=== PATIENT | female | born 1975 | race Caucasian/White ===

== ENCOUNTER 2017-01-09 21:55 | Emergency (ER) | payer MEDICAID ==
[~2017-01-09 21:55] MED LIST: ALTOPREV20 M1 PO; AMOXICILLIN 50500 MG PO; CELEXA20 M1 PO; CITALOPRAM40 MG PO; COMBIVENT RESPI1 SPR IH; FLOVENT HFA10.6 GM IH; LAMICTAL (BLUE)25 MG PO; LAMICTAL 100MG100 MG PO; LEVOTHYROXINE300 MCG PO; MACROBID 100 M100 MG PO; MASON NATURAL2000 IU PO; MICROGESTIN 1/21 TAB PO; NABUMETONE PO; NAPROSYN500 M1 PO; NEURONTIN300 M1 PO; NORCO 325 MG-51 TAB PO; OMEPRAZOLE D/R20 MG PO; ONDANSETRON HYDR4 M1 PO; OXYBUTYNIN CHLO10 MG PO; PANTOPRAZOLE SO40 MG PO; PEPCID 20MG TAB20 MG PO; PREDNISONE20 M1 PO; PREMARIN0.625 MG; PREMARIN0.625 MG PO; PROGESTERONE100 M1; SENEXON8.6 MG PO; SINGULAIR 110 MG/TAB PO; SINGULAIR4 MG PO; TESSALON PERLE100 M1 PO; TOPAMAX 100MG100 M1 PO; TOPAMAX100 MG PO; TREXIMET 500 MG1 TAB PO; VESICARE10 MG PO; VIBRAMYCIN100 MG PO; ZOFRAN ODT4 MG PO
[2017-01-10] MEDS ORDERED: TREXIMET PO (07:01)
== END 2017-01-09 22:41 | disposition home or self-care (01) ==
LOC: ED 21:55
DX: K04.7 Periapical abscess without sinus (principal)
CPT/HCPCS: J0696; J1885

== ENCOUNTER → 2017-07-11 | Outpatient (CLI) | payer MEDICAID ==
[2017-01-09 22:41] VITALS: BP 126/79
[~2017-07-11] MED LIST changes: +TREXIMET PO
== END ==
LOC: LAB 13:55
DX: E03.9 Hypothyroidism, unspecified (principal); E66.9 Obesity, unspecified

== ENCOUNTER 2017-09-11 21:34 | Emergency (ER) | payer MEDICAID ==
[~2017-09-11] VITALS: Ht 165.1 cm; Wt 135.5 kg
[2017-09-11] MEDS ORDERED: ZOFRAN ODT4 MG PO (23:42)
[2017-09-11 23:51] VITALS: BP 140/89
== END 2017-09-11 23:51 | disposition home or self-care (01) ==
LOC: ED 21:34
DX: A08.4 Viral intestinal infection, unspecified (principal); S93.401D Sprain of unspecified ligament of right ankle, subsequent encounter; X58.XXXD Exposure to other specified factors, subsequent encounter; F31.9 Bipolar disorder, unspecified; F41.9 Anxiety disorder, unspecified; E03.9 Hypothyroidism, unspecified; K21.9 Gastro-esophageal reflux disease without esophagitis; N39.3 Stress incontinence (female) (male); G62.9 Polyneuropathy, unspecified; Z87.891 Personal history of nicotine dependence; E66.9 Obesity, unspecified

== ENCOUNTER → 2017-09-13 | Outpatient (CLI) | payer MEDICAID ==
[2017-09-11 23:51] VITALS: BP 140/89
== END ==
LOC: RAD 11:27
DX: S93.401A Sprain of unspecified ligament of right ankle, initial encounter (principal); X58.XXXA Exposure to other specified factors, initial encounter

== ENCOUNTER 2017-12-11 18:36 | Emergency (ER) | payer MEDICAID ==
[~2017-12-11] VITALS: Wt 134.3 kg
[~2017-12-11 18:36] MED LIST changes: -LAMICTAL 100MG100 MG PO; +LAMICTAL200 M1 PO; -NEURONTIN300 M1 PO; +NEURONTIN800 M1 PO
[2017-12-11] MEDS ORDERED: HYDROXYZINE PAM25 M1 PO (18:48)
[2017-12-11] MEDS ORDERED: PROAIR HFA0.09 MG/AC IH (18:49)
[2017-12-11] MEDS ORDERED: OXYBUTYNIN CHLO10 MG PO (18:49)
[2017-12-11 19:37] LABS: HEMATOCRIT 39.3 % (37.0-47.0); HEMOGLOBIN 13.2 g/dL (12.5-16.0); MEAN CELL VOLUME 92 fl (78-100); MEAN CORPUSCULAR HEMOGLOBIN 31 pg (27-31); MEAN CORPUSCULAR HGB CONC 34 g/dL (33-37); MEAN PLATELET VOLUME 9.1 fl (7.4-10.4); PLATELET COUNT 280 K/mm3 (130-400); RED BLOOD COUNT 4.29 M/mm3 (4.10-5.30); RED CELL DISTRIBUTION WIDTH 12.3 % (11.5-14.5); WHITE BLOOD COUNT 8.5 K/mm3 (4.8-10.8)
[2017-12-11 19:47] LABS: BUN/CREATININE RATIO 13.4 (6.0-26.0); CALCIUM 8.7 mg/dL (8.4-10.2); POTASSIUM 3.9 mmol/L (3.6-5.0)
[2017-12-11 20:04] LABS: LYMPHOCYTE 27 % (20-51); MONOCYTE 10 % (3-10); NEUTROPHILS 53 % (42-75)
[2017-12-11 20:32] LABS: ERYTHROCYTE SEDIMENTATION RATE 24 mm/hr (0-20)
[2017-12-11] MEDS ORDERED: HCTZ 25MG25 MG PO ×2 (20:39)
[2017-12-11 20:42] VITALS: BP 154/87
== END 2017-12-11 20:42 | disposition home or self-care (01) ==
LOC: ED 18:36
PROVIDERS: Family Medicine
DX: R60.9 Edema, unspecified (principal); E03.9 Hypothyroidism, unspecified; F31.9 Bipolar disorder, unspecified; G62.9 Polyneuropathy, unspecified; K21.9 Gastro-esophageal reflux disease without esophagitis; M25.542 Pain in joints of left hand

== ENCOUNTER 2018-01-23 15:42 | Emergency (ER) | payer MEDICAID ==
[~2018-01-23] VITALS: Ht 165.1 cm; Wt 127.7 kg
[~2018-01-23 15:42] MED LIST changes: +HCTZ 25MG25 MG PO; +HYDROXYZINE PAM25 M1 PO; +PROAIR HFA0.09 MG/AC IH
[2018-01-23] MEDS ORDERED: LEVOTHYROXIN0.025 MG PO (15:55)
[2018-01-23] MEDS ORDERED: PREDNISONE20 M1 PO (17:38)
[2018-01-23] MEDS ORDERED: CLEOCIN HCL300 MG PO (17:38)
[2018-01-23] MEDS ORDERED: PEPCID 20MG TAB20 MG PO (17:42)
[2018-01-23 18:27] VITALS: BP 125/72
== END 2018-01-23 18:53 | disposition home or self-care (01) ==
LOC: ED 15:42
DX: L50.0 Allergic urticaria (principal); T37.0X5A Adverse effect of sulfonamides, initial encounter; Z88.2 Allergy status to sulfonamides; L30.9 Dermatitis, unspecified; F31.9 Bipolar disorder, unspecified; F41.9 Anxiety disorder, unspecified; J45.909 Unspecified asthma, uncomplicated; R32 Unspecified urinary incontinence
CPT/HCPCS: J1200; J2930; J3490; J7030

== ENCOUNTER 2018-02-21 19:35 | Emergency (ER) | payer MEDICAID ==
[~2018-02-21] VITALS: Ht 165.1 cm; Wt 130.4 kg
[~2018-02-21 19:35] MED LIST changes: +CLEOCIN HCL300 MG PO; +LEVOTHYROXIN0.025 MG PO
[2018-02-21] MEDS ORDERED: CLINDAMYCIN 300MG PO (21:01)
[2018-02-21 21:20] VITALS: BP 146/85
== END 2018-02-21 21:20 | disposition home or self-care (01) ==
LOC: ED 19:35
DX: L02.415 Cutaneous abscess of right lower limb (principal); L03.032 Cellulitis of left toe; Z88.2 Allergy status to sulfonamides; J45.909 Unspecified asthma, uncomplicated

== ENCOUNTER 2018-03-15 21:42 | Emergency (ER) | payer MEDICAID ==
[~2018-03-15 21:42] MED LIST changes: +CLINDAMYCIN 300MG PO
[2018-03-15 22:26] LABS: EOS # 0.3 (0.04-0.40); EOS % 3.4 % (1.0-5.0); HEMATOCRIT 44.2 % (37.0-47.0); HEMOGLOBIN 14.8 g/dL (12.5-16.0); LYMPH# 1.4 (1.50-4.00); MEAN CELL VOLUME 90 fl (78-100); MEAN CORPUSCULAR HEMOGLOBIN 30 pg (27-31); MEAN CORPUSCULAR HGB CONC 34 g/dL (33-37); MEAN PLATELET VOLUME 9.2 fl (7.4-10.4); MONO # 0.8 (0.20-0.80); NEU # 5.9 (1.40-6.50); PLATELET COUNT 283 K/mm3 (130-400); RED CELL DISTRIBUTION WIDTH 13.8 % (11.5-14.5); WHITE BLOOD COUNT 8.4 K/mm3 (4.8-10.8)
[2018-03-15 22:44] LABS: BUN/CREATININE RATIO 14.7 (6.0-26.0); CALCIUM 9.3 mg/dL (8.4-10.2); CARBON DIOXIDE 28 mmol/L (22-30); GLUCOSE 115 mg/dL (65-105); POTASSIUM 3.3 mmol/L (3.6-5.0); SODIUM 140 mmol/L (137-145)
[2018-03-15 22:53] LABS: ACETAMINOPHEN < 4 ug/mL (10-30); ALCOHOL IN-HOUSE < 10 mg/dL
[2018-03-16 04:20] VITALS: BP 100/57
== END 2018-03-16 04:20 ==
LOC: ED 21:42
PROVIDERS: Nurse Practitioner Primary Care
DX: R45.851 Suicidal ideations (principal); F41.9 Anxiety disorder, unspecified; F32.9 Major depressive disorder, single episode, unspecified; F17.200 Nicotine dependence, unspecified, uncomplicated

== ENCOUNTER 2018-03-22 03:07 | Emergency (ER) | payer MEDICAID ==
[~2018-03-22] VITALS: Ht 165.1 cm; Wt 127.2 kg
[2018-03-22] MEDS ORDERED: DESYREL 100MG100 MG PO (03:23)
[2018-03-22] MEDS ORDERED: SEROQUEL 2525 MG/TAB PO (03:24)
[2018-03-22] MEDS ORDERED: ABILIFY5 MG PO (03:24)
[2018-03-22] MEDS ORDERED: LOVASTATIN20 M1 PO (03:25)
[2018-03-22] MEDS ORDERED: RECLIPSEN 0.151 TAB PO (03:25)
[2018-03-22] MEDS ORDERED: VESICARE10 MG PO (03:30)
[2018-03-22 04:09] LABS: EOS # 0.5 (0.04-0.40); EOS % 6.7 % (1.0-5.0); HEMATOCRIT 39.8 % (37.0-47.0); HEMOGLOBIN 13.1 g/dL (12.5-16.0); LYMPH# 1.7 (1.50-4.00); MEAN CELL VOLUME 93 fl (78-100); MEAN CORPUSCULAR HEMOGLOBIN 31 pg (27-31); MEAN CORPUSCULAR HGB CONC 33 g/dL (33-37); MEAN PLATELET VOLUME 9.2 fl (7.4-10.4); MONO # 0.8 (0.20-0.80); NEU # 4.9 (1.40-6.50); PLATELET COUNT 253 K/mm3 (130-400); RED BLOOD COUNT 4.26 M/mm3 (4.10-5.30); RED CELL DISTRIBUTION WIDTH 13.9 % (11.5-14.5)
[2018-03-22 04:25] LABS: BUN/CREATININE RATIO 12.1 (6.0-26.0); CALCIUM 8.7 mg/dL (8.4-10.2); CARBON DIOXIDE 32 mmol/L (22-30); GLUCOSE 102 mg/dL (65-105); SODIUM 139 mmol/L (137-145)
[2018-03-22 04:30] LABS: ACETAMINOPHEN < 4 ug/mL (10-30)
[2018-03-22 04:31] LABS: URINE COLOR YELLOW
[2018-03-22 04:34] LABS: URINE APPEARANCE HAZY; URINE BILIRUBIN NEGATIVE (NEGATIVE); URINE BLOOD NEGATIVE (NEGATIVE); URINE GLUCOSE NEGATIVE (NEGATIVE); URINE KETONE NEGATIVE (NEGATIVE); URINE LEUKOCYTE ESTERASE TRACE (NEGATIVE); URINE NITRATE NEGATIVE (NEGATIVE); URINE PROTEIN(semi-quant) NEGATIVE (NEGATIVE); URINE UROBILINOGEN NORMAL (NORMAL)
[2018-03-22 04:35] LABS: URINE MUCUS PRESENT (NOT PRESENT)
[2018-03-22 04:37] LABS: ALCOHOL IN-HOUSE < 10 mg/dL
[2018-03-22 06:38] VITALS: BP 140/82
== END 2018-03-22 06:38 | disposition home or self-care (01) ==
LOC: ED 03:07
PROVIDERS: Nurse Practitioner Family
DX: F31.30 Bipolar disorder, current episode depressed, mild or moderate severity, unspecified (principal); F41.9 Anxiety disorder, unspecified; Z91.5 Personal history of self-harm; F17.210 Nicotine dependence, cigarettes, uncomplicated

== ENCOUNTER 2018-03-31 15:31 | Emergency (ER) | payer MEDICAID ==
[~2018-03-31] VITALS: Ht 165.1 cm; Wt 123.2 kg
[~2018-03-31 15:31] MED LIST changes: +ABILIFY5 MG PO; +DESYREL 100MG100 MG PO; +LOVASTATIN20 M1 PO; +RECLIPSEN 0.151 TAB PO; +SEROQUEL 2525 MG/TAB PO
[2018-03-31 17:08] LABS: EOS # 0.4 (0.04-0.40); EOS % 5.4 % (1.0-5.0); HEMATOCRIT 39.5 % (37.0-47.0); HEMOGLOBIN 13.4 g/dL (12.5-16.0); LYMPH# 1.4 (1.50-4.00); MEAN CELL VOLUME 92 fl (78-100); MEAN CORPUSCULAR HEMOGLOBIN 31 pg (27-31); MEAN CORPUSCULAR HGB CONC 34 g/dL (33-37); MEAN PLATELET VOLUME 9.5 fl (7.4-10.4); MONO # 0.8 (0.20-0.80); NEU # 4.7 (1.40-6.50); PLATELET COUNT 276 K/mm3 (130-400); RED BLOOD COUNT 4.31 M/mm3 (4.10-5.30); RED CELL DISTRIBUTION WIDTH 13.6 % (11.5-14.5); WHITE BLOOD COUNT 7.4 K/mm3 (4.8-10.8)
[2018-03-31 17:13] LABS: PH-URINE 5.5 (5.0 - 8.0); URINE APPEARANCE HAZY; URINE COLOR YELLOW; URINE GLUCOSE NEGATIVE (NEGATIVE); URINE KETONE 2+ (NEGATIVE); URINE PROTEIN(semi-quant) TRACE mg/dL (NEGATIVE)
[2018-03-31 17:14] LABS: ALBUMIN 3.9 g/dL (3.5-5.0); BUN/CREATININE RATIO 11.8 (6.0-26.0); CALCIUM 8.8 mg/dL (8.4-10.2); POTASSIUM 3.6 mmol/L (3.6-5.0); TOTAL BILIRUBIN 0.6 mg/dL (0.2-1.3); TOTAL PROTEIN 7.1 g/dL (6.3-8.2)
[2018-03-31 17:14] LABS: URINE BILIRUBIN NEGATIVE (NEGATIVE); URINE BLOOD NEGATIVE (NEGATIVE); URINE LEUKOCYTE ESTERASE 1+ (NEGATIVE); URINE MUCUS PRESENT (NOT PRESENT); URINE NITRATE NEGATIVE (NEGATIVE); URINE UROBILINOGEN NORMAL (NORMAL)
[2018-03-31] MEDS ORDERED: PYRIDIUM200 M2 PO (21:26)
[2018-03-31] MEDS ORDERED: CEPHALEXIN250 MG PO (21:26)
[2018-03-31 21:42] VITALS: BP 126/76
[2018-03-31] MEDS ORDERED: ZOFRAN ODT4 MG PO (21:43)
== END 2018-03-31 21:42 | disposition home or self-care (01) ==
LOC: ED 15:31
PROVIDERS: Internal Medicine; Physician Assistant
DX: K52.9 Noninfective gastroenteritis and colitis, unspecified (principal); N39.0 Urinary tract infection, site not specified; F17.210 Nicotine dependence, cigarettes, uncomplicated; Z79.899 Other long term (current) drug therapy; R32 Unspecified urinary incontinence
CPT/HCPCS: J0696; J2405; J7030

== ENCOUNTER 2018-04-08 02:24 | Emergency (ER) | payer MEDICAID ==
[~2018-04-08] VITALS: Ht 165.1 cm; Wt 123.2 kg
[~2018-04-08 02:24] MED LIST changes: +CEPHALEXIN250 MG PO; +PYRIDIUM200 M2 PO
[2018-04-08 03:52] LABS: EOS # 0.5 (0.04-0.40); EOS % 6.6 % (1.0-5.0); HEMATOCRIT 38.4 % (37.0-47.0); LYMPH# 1.3 (1.50-4.00); MEAN CELL VOLUME 92 fl (78-100); MEAN CORPUSCULAR HEMOGLOBIN 31 pg (27-31); MEAN CORPUSCULAR HGB CONC 34 g/dL (33-37); MEAN PLATELET VOLUME 9.4 fl (7.4-10.4); MONO # 0.7 (0.20-0.80); NEU # 4.9 (1.40-6.50); PLATELET COUNT 259 K/mm3 (130-400); RED BLOOD COUNT 4.18 M/mm3 (4.10-5.30); RED CELL DISTRIBUTION WIDTH 13.5 % (11.5-14.5); WHITE BLOOD COUNT 7.3 K/mm3 (4.8-10.8)
[2018-04-08 04:12] LABS: ALBUMIN 3.6 g/dL (3.5-5.0); BUN/CREATININE RATIO 11.1 (6.0-26.0); CALCIUM 8.3 mg/dL (8.4-10.2); POTASSIUM 3.1 mmol/L (3.6-5.0); TOTAL BILIRUBIN 0.6 mg/dL (0.2-1.3)
[2018-04-08 04:43] LABS: URINE APPEARANCE HAZY; URINE BILIRUBIN NEGATIVE (NEGATIVE); URINE BLOOD NEGATIVE (NEGATIVE); URINE COLOR AMBER; URINE GLUCOSE NEGATIVE (NEGATIVE); URINE KETONE NEGATIVE (NEGATIVE); URINE LEUKOCYTE ESTERASE 2+ (NEGATIVE); URINE NITRATE NEGATIVE (NEGATIVE); URINE PROTEIN(semi-quant) TRACE mg/dL (NEGATIVE); URINE UROBILINOGEN NORMAL (NORMAL); URINE WBC 16-30 /hpf (0-3)
[2018-04-08 04:44] LABS: URINE MUCUS PRESENT (NOT PRESENT)
[2018-04-08] MEDS ORDERED: MACROBID 100 M100 MG PO (04:54)
[2018-04-08 05:30] VITALS: BP 100/54
== END 2018-04-08 05:30 | disposition home or self-care (01) ==
LOC: ED 02:24
PROVIDERS: Physician Assistant
DX: J45.901 Unspecified asthma with (acute) exacerbation (principal); G62.9 Polyneuropathy, unspecified; S80.11XA Contusion of right lower leg, initial encounter; R60.0 Localized edema; Z91.81 History of falling; E87.6 Hypokalemia; N39.0 Urinary tract infection, site not specified; Y92.009 Unspecified place in unspecified non-institutional (private) residence as the place of occurrence of the external cause; W19.XXXA Unspecified fall, initial encounter; F32.9 Major depressive disorder, single episode, unspecified

== ENCOUNTER 2018-04-14 14:02 | Emergency (ER) | payer MEDICAID ==
[~2018-04-14] VITALS: Ht 165.1 cm; Wt 123.5 kg
[2018-04-14 15:29] LABS: EOS # 0.5 (0.04-0.40); EOS % 7.7 % (1.0-5.0); HEMATOCRIT 40.2 % (37.0-47.0); HEMOGLOBIN 13.4 g/dL (12.5-16.0); LYMPH# 1.2 (1.50-4.00); MEAN CELL VOLUME 93 fl (78-100); MEAN CORPUSCULAR HEMOGLOBIN 31 pg (27-31); MEAN CORPUSCULAR HGB CONC 33 g/dL (33-37); MEAN PLATELET VOLUME 9.2 fl (7.4-10.4); MONO # 0.6 (0.20-0.80); NEU # 4.6 (1.40-6.50); PLATELET COUNT 311 K/mm3 (130-400); RED BLOOD COUNT 4.31 M/mm3 (4.10-5.30); RED CELL DISTRIBUTION WIDTH 13.7 % (11.5-14.5); WHITE BLOOD COUNT 6.9 K/mm3 (4.8-10.8)
[2018-04-14 15:40] LABS: ALBUMIN 3.5 g/dL (3.5-5.0); BUN/CREATININE RATIO 9.3 (6.0-26.0); CALCIUM 8.6 mg/dL (8.4-10.2); POTASSIUM 3.4 mmol/L (3.6-5.0); TOTAL BILIRUBIN 0.5 mg/dL (0.2-1.3); TOTAL PROTEIN 6.7 g/dL (6.3-8.2)
[2018-04-14] MEDS ORDERED: ZOFRAN ODT8 M1 PO (16:16)
[2018-04-14 16:36] VITALS: BP 126/72
== END 2018-04-14 16:36 | disposition home or self-care (01) ==
LOC: ED 14:02
PROVIDERS: Physician Assistant
DX: R11.0 Nausea (principal); R19.7 Diarrhea, unspecified; F31.9 Bipolar disorder, unspecified; F60.3 Borderline personality disorder; F41.9 Anxiety disorder, unspecified; J45.909 Unspecified asthma, uncomplicated

== ENCOUNTER → 2018-04-19 | Outpatient (CLI) | payer MEDICAID ==
[2018-04-14 16:36] VITALS: BP 126/72
[~2018-04-19] MED LIST changes: +ZOFRAN ODT8 M1 PO
[2018-04-19 21:19] LABS: CLUE CELLS PRESENT (Not Observd)
== END ==
LOC: LAB 17:04
PROVIDERS: Family Medicine
DX: R30.0 Dysuria (principal)
CPT/HCPCS: Q0111

== ENCOUNTER 2018-04-23 22:49 | Emergency (ER) | payer MEDICAID ==
[2018-04-23 23:58] LABS: HEMATOCRIT 42.1 % (37.0-47.0); HEMOGLOBIN 14.1 g/dL (12.5-16.0); MEAN CELL VOLUME 94 fl (78-100); MEAN CORPUSCULAR HEMOGLOBIN 31 pg (27-31); MEAN CORPUSCULAR HGB CONC 34 g/dL (33-37); MEAN PLATELET VOLUME 9.8 fl (7.4-10.4); PLATELET COUNT 278 K/mm3 (130-400); RED CELL DISTRIBUTION WIDTH 13.7 % (11.5-14.5); WHITE BLOOD COUNT 9.3 K/mm3 (4.8-10.8)
[2018-04-24 00:04] LABS: CALCIUM 8.6 mg/dL (8.4-10.2); POTASSIUM 3.1 mmol/L (3.6-5.0)
[2018-04-24 00:09] LABS: LYMPHOCYTE 21 % (20-51); MONOCYTE 8 % (3-10); NEUTROPHILS 62 % (42-75)
[2018-04-24 07:37] LABS: BUN/CREATININE RATIO 11.5 (6.0-26.0); CALCIUM 8.2 mg/dL (8.4-10.2); POTASSIUM 3.6 mmol/L (3.6-5.0)
[2018-04-24 08:48] VITALS: BP 133/83
== END 2018-04-24 08:35 | disposition home or self-care (01) ==
LOC: ED 22:49
PROVIDERS: Family Medicine
DX: E87.6 Hypokalemia (principal); Z91.81 History of falling
CPT/HCPCS: J3480

== ENCOUNTER → 2018-05-08 | Outpatient (CLI) | payer MEDICAID ==
[2018-04-24 08:48] VITALS: BP 133/83
[2018-05-08 15:57] LABS: BUN/CREATININE RATIO 14.9 (6.0-26.0); CALCIUM 8.8 mg/dL (8.4-10.2); POTASSIUM 4.4 mmol/L (3.6-5.0)
== END ==
LOC: LAB 15:11
PROVIDERS: Nurse Practitioner Family
DX: E87.6 Hypokalemia (principal)

== ENCOUNTER 2018-05-30 01:01 | Emergency (ER) | payer MEDICAID ==
[2018-05-30] MEDS ORDERED: CLINDAMYCIN 300MG PO (01:32)
[2018-05-30 01:38] VITALS: BP 124/87
== END 2018-05-30 01:38 | disposition home or self-care (01) ==
LOC: ED 01:01
DX: T63.301A Toxic effect of unspecified spider venom, accidental (unintentional), initial encounter (principal); L98.9 Disorder of the skin and subcutaneous tissue, unspecified; Z79.899 Other long term (current) drug therapy; J45.909 Unspecified asthma, uncomplicated; Z88.2 Allergy status to sulfonamides; Z86.14 Personal history of Methicillin resistant Staphylococcus aureus infection

== ENCOUNTER 2018-06-01 01:32 | Emergency (ER) | payer MEDICAID ==
[2018-06-01] MEDS ORDERED: CLEOCIN HCL300 MG PO (02:08)
[2018-06-01 02:15] VITALS: BP 113/72
== END 2018-06-01 02:16 | disposition home or self-care (01) ==
LOC: ED 01:32
DX: T63.301A Toxic effect of unspecified spider venom, accidental (unintentional), initial encounter (principal); L02.212 Cutaneous abscess of back [any part, except buttock and flank]; Z88.2 Allergy status to sulfonamides; Z79.899 Other long term (current) drug therapy; J45.909 Unspecified asthma, uncomplicated
CPT/HCPCS: J1885

== ENCOUNTER 2018-06-16 14:24 | Emergency (ER) | payer MEDICAID ==
[~2018-06-16] VITALS: Ht 165.1 cm; Wt 117.7 kg
[2018-06-16] MEDS ORDERED: SAXENDA3 MG/0.5 M SQ (14:31)
[2018-06-16] MEDS ORDERED: LAMOTRIGINE200 MG PO (14:32)
[2018-06-16] MEDS ORDERED: ISIBLOOM 28 DA1 EACH PO (14:32)
[2018-06-16] MEDS ORDERED: ARIPIPRAZOLE10 M1 PO (14:32)
[2018-06-16] MEDS ORDERED: PREDNISONE20 M1 PO (15:48)
[2018-06-16] MEDS ORDERED: ZITHROMAX 250M250 MG PO (15:48)
[2018-06-16 15:55] VITALS: BP 112/71
== END 2018-06-16 15:54 | disposition home or self-care (01) ==
LOC: ED 14:24
DX: J45.909 Unspecified asthma, uncomplicated (principal); Z79.899 Other long term (current) drug therapy
CPT/HCPCS: J7512

== ENCOUNTER 2018-09-30 20:45 | Observation (INO) | payer MEDICAID ==
[~2018-09-30] VITALS: Ht 165.1 cm; Wt 125.5 kg
[~2018-09-30 20:45] MED LIST changes: +ARIPIPRAZOLE10 M1 PO; +ISIBLOOM 28 DA1 EACH PO; +LAMOTRIGINE200 MG PO; +SAXENDA3 MG/0.5 M SQ; +ZITHROMAX 250M250 MG PO
[2018-09-30 21:50] LABS: EOS % 8.5 % (1.0-5.0); HEMATOCRIT 39.6 % (37.0-47.0); HEMOGLOBIN 13.4 g/dL (12.5-16.0); LYMPH# 1.5 (1.50-4.00); MEAN CELL VOLUME 93 fl (78-100); MEAN CORPUSCULAR HEMOGLOBIN 32 pg (27-31); MEAN CORPUSCULAR HGB CONC 34 g/dL (33-37); MEAN PLATELET VOLUME 9.3 fl (7.4-10.4); MONO # 0.7 (0.20-0.80); NEU # 7.8 (1.40-6.50); PLATELET COUNT 274 K/mm3 (130-400); RED BLOOD COUNT 4.25 M/mm3 (4.10-5.30); RED CELL DISTRIBUTION WIDTH 12.4 % (11.5-14.5)
[2018-09-30 21:52] LABS: EOS # 0.9 (0.04-0.40)
[2018-09-30 21:59] LABS: ALBUMIN 3.9 g/dL (3.5-5.0); CALCIUM 8.7 mg/dL (8.4-10.2); POTASSIUM 3.8 mmol/L (3.6-5.0); TOTAL BILIRUBIN 0.4 mg/dL (0.2-1.3); TOTAL PROTEIN 6.5 g/dL (6.3-8.2)
[2018-10-01] VITALS (7 sets, daily range): BP systolic 120–145; BP diastolic 63–93
--- NOTE | 2018-10-01 07:34 | NUR ---
REPORT RECEIVED FROM EVAN LIMON. PATIENT IS AWAKE AND ALERT TALKING IN BROKEN SENTENCES WITH LABORED RESPIRATIONS. PATIENT WANTS OXYGEN OFF SINCE IT IS TICKLING HER NOSE. EXPLAINED TO PATIENT NEED FOR OXYGEN AND AGREED TO TURN DOWN TO SEE HOW O2 SATS RESPOND. TRIALING 1L O2 VIA NC AT THIS TIME. SATS ARE 92% ON 2L BEFORE TURNING DOWN OXYGEN. PATIENT IS VERBALIZING WANTING TO GO HOME THAT SHE IS FEELING MUCH BETTER.
--- NOTE | 2018-10-01 09:18 | NUR ---
PATIENT RESTING IN ROOM SITTING UP IN BED. LABORED BREATHING IS BETTER AFTER TAKING BOTH NEBULIZED TREATMENTS BUT STILL NEEDS SUPPLEMENTAL OXYGEN TO STAY ABOVE 90%. PATIENT CONTINUES TO ASK THIS NURSE WHEN SHE CAN GO HOME. PATIENT REPORTS FEELING BETTER BUT EXPLAINED TO PATIENT THAT SHE IS NEEDING THE OXYGEN AND WE NEED TO CONTINUE TO MONITOR HER. SHE VERBALIZES UNDERSTANDING.
--- NOTE | 2018-10-01 17:49 | NUR ---
PATIENT RESTING SITTING UP IN BED, TALKING ON PHONE. SHE IS SPEAKING FULL SENTENCES BUT CONTINUES TO BE LABORED BREATHING WITH AUDIBLE WHEEZING. HAS 2L NC SUPPLEMENTAL OXYGEN ON AT THIS TIME. SATS CONTINUE TO RUN 90-93 ON 2L O2. PATIENT IS CALM AND COOPERATIVE. DOES NOT APPEAR TO BE ANXIOUS OR IN DISCOMFORT.
--- NOTE | 2018-10-01 19:33 | NUR ---
Report received from Jessica GORDON. Patient resting supine in bed, watching TV. Oxygen in place a 2 L/NC. States breathing is "alot better". Able to talk in full sentences. States nostrils are dry and irritated. Bubbler placed on oxygen and water soluable lubricant provided. Assessment completed. Expiratory wheezes heard all lobes with LLL slightly diminished. No pedal edema noted. Denies wants or needs at this time.
--- NOTE | 2018-10-01 22:57 | NUR ---
Oxygen level turned down to 1 L/NC. Will recheck SAO2 in 15 Minutes.
--- NOTE | 2018-10-01 23:06 | NUR ---
SAO2 90% on 1L. Oxygen placed back on 2L/NC.
[2018-10-02 03:19] VITALS: BP 125/73
--- NOTE | 2018-10-02 04:09 | NUR ---
Up to BR with SBA to void. Appears winded when ambulating to BR and back. Oxygen in place at 2L/NC. Urine dark and concentrated. Encourage to increase water consumption.
--- NOTE | 2018-10-02 06:14 | NUR ---
AM medication given. IV site patent to L forearm. Denies pain except with cough. Robitussin given x2 in the night. 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 Continues to shows signs of dyspnea with exertion. SAO2 95% on 2L.NC.
[2018-10-02 06:39] VITALS: BP 128/84
--- NOTE | 2018-10-02 07:24 | NUR ---
Report to Paula GORDON.
--- NOTE | 2018-10-02 08:25 | NUR ---
Kanchan Gonzalez APRN at bedside.
--- NOTE | 2018-10-02 08:31 | NUR ---
Patient alert and oriented. Denies pain. States that she is feeling better and wants to go home. Patient is able to speak in full sentences. Oxygen saturation 95% on oxygen at 2 liters via nasal cannula. Oxygen decreased to 1 liter. Patient denies needs or questions at this time. Fall precautions in place.
[2018-10-02 10:54] VITALS: BP 145/84
--- NOTE | 2018-10-02 11:00 | NUR ---
Patient ambulated in hallway >150 ft. Oxygen saturation 93-94% on room air with ambulation.
[2018-10-02 14:53] VITALS: BP 119/73
[2018-10-02] MEDS ORDERED: DOXYCYCLINE HYC50 M1 PO ×2 (16:48→16:59)
[2018-10-02] MEDS ORDERED: ROBITUSSIN AC PO (16:52)
[2018-10-02] MEDS ORDERED: PROAIR HFA0.09 MG/AC IH (16:53)
[2018-10-02] MEDS ORDERED: PREDNISONE20 M1 PO ×2 (16:56→17:00)
[2018-10-02] MEDS ORDERED: COMBIVENT RESPI1 SPR IH (16:56)
--- NOTE | 2018-10-02 18:28 | NUR ---
Patient alert and oriented. Denies pain. Reports shortness of breath has improved since admission. Oxygen saturation 93-94% on room air. Patient discharged to home. Written and verbal discharge instructions provided. Rx faxed to [facility]. Patient verbalizes understanding of discharge instructions and denies questions. Out of facility via wheelchair to V without incident.
== END 2018-10-02 18:28 | disposition home or self-care (01) ==
LOC: ED 20:45 → MED/SURG 10-01 00:15
PROVIDERS: ADMIT Family Medicine
DX: J45.901 Unspecified asthma with (acute) exacerbation (principal); R09.02 Hypoxemia; G47.30 Sleep apnea, unspecified; Z79.899 Other long term (current) drug therapy; N39.46 Mixed incontinence; E03.9 Hypothyroidism, unspecified; Z91.19 Patient's noncompliance with other medical treatment and regimen
CPT/HCPCS: G0378; J2920; J7512

== ENCOUNTER 2018-10-24 13:12 | Emergency (ER) | payer MEDICAID ==
[~2018-10-24] VITALS: Ht 165.1 cm; Wt 123.6 kg
[~2018-10-24 13:12] MED LIST changes: +DOXYCYCLINE HYC50 M1 PO; +ROBITUSSIN AC PO
[2018-10-24 15:14] LABS: PH-URINE 5.5 (5.0 - 8.0); URINE APPEARANCE CLEAR; URINE BILIRUBIN NEGATIVE (NEGATIVE); URINE BLOOD NEGATIVE (NEGATIVE); URINE COLOR YELLOW; URINE GLUCOSE NEGATIVE (NEGATIVE); URINE KETONE NEGATIVE (NEGATIVE); URINE NITRATE NEGATIVE (NEGATIVE); URINE PROTEIN(semi-quant) TRACE mg/dL (NEGATIVE); URINE UROBILINOGEN NORMAL (NORMAL)
[2018-10-24 15:15] LABS: URINE LEUKOCYTE ESTERASE TRACE (NEGATIVE)
[2018-10-24] MEDS ORDERED: MACROBID 100 M100 MG PO (15:39)
[2018-10-24] MEDS ORDERED: DIFLUCAN150 M1 PO (15:39)
[2018-10-24 15:47] VITALS: BP 122/82
== END 2018-10-24 15:47 | disposition home or self-care (01) ==
LOC: ED 13:12
PROVIDERS: Nurse Practitioner
DX: N30.00 Acute cystitis without hematuria (principal); I10 Essential (primary) hypertension; Z87.440 Personal history of urinary (tract) infections; R32 Unspecified urinary incontinence; J45.909 Unspecified asthma, uncomplicated; Z88.2 Allergy status to sulfonamides; Z98.51 Tubal ligation status; Z79.899 Other long term (current) drug therapy

== ENCOUNTER → 2019-02-28 | Outpatient (CLI) | payer MEDICAID ==
[~2019-02-28] MED LIST changes: +DIFLUCAN150 M1 PO
[2019-02-28 13:11] LABS: EOS # 0.6 (0.04-0.40); EOS % 7.7 % (1.0-5.0); HEMATOCRIT 41.3 % (37.0-47.0); HEMOGLOBIN 13.7 g/dL (12.5-16.0); LYMPH# 1.5 (1.50-4.00); MEAN CELL VOLUME 93 fl (78-100); MEAN CORPUSCULAR HEMOGLOBIN 31 pg (27-31); MEAN CORPUSCULAR HGB CONC 33 g/dL (33-37); MEAN PLATELET VOLUME 9.6 fl (7.4-10.4); MONO # 0.6 (0.20-0.80); NEU # 4.5 (1.40-6.50); PLATELET COUNT 245 K/mm3 (130-400); RED BLOOD COUNT 4.46 M/mm3 (4.10-5.30); RED CELL DISTRIBUTION WIDTH 12.6 % (11.5-14.5); WHITE BLOOD COUNT 7.3 K/mm3 (4.8-10.8)
[2019-02-28 13:50] LABS: ALBUMIN 3.5 g/dL (3.5-5.0); CALCIUM 8.8 mg/dL (8.4-10.2); POTASSIUM 3.7 mmol/L (3.5-5.1); TOTAL BILIRUBIN 0.6 mg/dL (0.2-1.2); TOTAL PROTEIN 6.1 g/dL (6.4-8.3)
== END ==
LOC: LAB 12:53
PROVIDERS: Physician Assistant
DX: E03.9 Hypothyroidism, unspecified (principal); E55.9 Vitamin D deficiency, unspecified; R00.0 Tachycardia, unspecified

== ENCOUNTER → 2019-03-01 | Outpatient (CLI) | payer MEDICAID | LOC: LAB 12:00 | DX: E03.9 Hypothyroidism, unspecified (principal); R00.0 Tachycardia, unspecified; E55.9 Vitamin D deficiency, unspecified ==

== ENCOUNTER 2019-05-01 19:26 | Emergency (ER) | payer MEDICAID ==
[~2019-05-01 19:26] MED LIST changes: +DESENEX2% TP; +IPRATROPIUM BROM3 M1 IH; +MUCUS RELIEF400 M1 PO; +NYSTATIN15 G1 TP; +PREDNISONE10 MG PO
[2019-05-01] MEDS ORDERED: BREO ELLIPTA 21 EACH IH (19:34)
[2019-05-01] MEDS ORDERED: SPIRIVA RESPIMAT4 GM IH (19:34)
[2019-05-02] MEDS ORDERED: VIBRAMYCIN HYC100 MG PO (00:59)
[2019-05-02] MEDS ORDERED: MUPIROCIN2% TP (01:01)
[2019-05-02 01:22] VITALS: BP 135/86
== END 2019-05-02 01:22 | disposition home or self-care (01) ==
LOC: ED 19:26
DX: L73.9 Follicular disorder, unspecified (principal); R51 Headache; F31.9 Bipolar disorder, unspecified; F41.9 Anxiety disorder, unspecified; G62.9 Polyneuropathy, unspecified; Z88.2 Allergy status to sulfonamides; Z87.891 Personal history of nicotine dependence; Z79.51 Long term (current) use of inhaled steroids

== ENCOUNTER 2019-05-27 19:58 | Emergency (ER) | payer MEDICAID ==
[~2019-05-27] VITALS: Ht 165.1 cm; Wt 131.8 kg
[~2019-05-27 19:58] MED LIST changes: +BREO ELLIPTA 21 EACH IH; +MUPIROCIN2% TP; +SPIRIVA RESPIMAT4 GM IH; +VIBRAMYCIN HYC100 MG PO
[2019-05-27] MEDS ORDERED: ALBUTEROL2.5 MG/3 M IH (20:19)
[2019-05-27] MEDS ORDERED: RT ADVAIR HFA 2312 G IH (20:19)
[2019-05-27 21:10] LABS: EOS # 0.6 (0.04-0.40); EOS % 5.3 % (1.0-5.0); HEMATOCRIT 40.5 % (37.0-47.0); HEMOGLOBIN 13.7 g/dL (12.5-16.0); LYMPH# 1.6 (1.50-4.00); MEAN CELL VOLUME 94 fl (78-100); MEAN CORPUSCULAR HEMOGLOBIN 32 pg (27-31); MEAN CORPUSCULAR HGB CONC 34 g/dL (33-37); MEAN PLATELET VOLUME 9.3 fl (7.4-10.4); MONO # 1.3 (0.20-0.80); NEU # 8.1 (1.40-6.50); PLATELET COUNT 272 K/mm3 (130-400); RED CELL DISTRIBUTION WIDTH 13.9 % (11.5-14.5); WHITE BLOOD COUNT 11.7 K/mm3 (4.8-10.8)
[2019-05-27] MEDS ORDERED: CEPHALEXIN500 M1 PO (21:24)
[2019-05-27 21:51] VITALS: BP 116/78
[2019-05-27 22:08] LABS: ERYTHROCYTE SEDIMENTATION RATE 41 mm/hr (0-20)
== END 2019-05-27 21:50 | disposition home or self-care (01) ==
LOC: ED 19:58
PROVIDERS: Family Medicine
DX: J02.0 Streptococcal pharyngitis (principal); K04.7 Periapical abscess without sinus; F31.9 Bipolar disorder, unspecified; J45.909 Unspecified asthma, uncomplicated; Z79.51 Long term (current) use of inhaled steroids
CPT/HCPCS: J0696

== ENCOUNTER → 2019-06-27 | Outpatient (CLI) | payer MEDICAID ==
[~2019-06-27] MED LIST changes: +ALBUTEROL2.5 MG/3 M IH; +CEPHALEXIN500 M1 PO; +RT ADVAIR HFA 2312 G IH
== END ==
LOC: LAB 16:57
DX: E55.9 Vitamin D deficiency, unspecified (principal); E03.9 Hypothyroidism, unspecified

== ENCOUNTER 2019-08-22 14:42 | Emergency (ER) | payer MEDICAID ==
[~2019-08-22] VITALS: Wt 137.5 kg
[~2019-08-22 14:42] MED LIST changes: -MASON NATURAL2000 IU PO; +VITAMIN D50000 UNIT PO
[2019-08-22] MEDS ORDERED: PROAIR HFA0.09 MG/AC IH (14:54)
[2019-08-22] MEDS ORDERED: MELOXICAM15 MG PO (14:56)
[2019-08-22] MEDS ORDERED: ESCITALOPRAM20 MG PO (14:56)
[2019-08-22] MEDS ORDERED: ARIPIPRAZOLE15 MG PO (14:57)
[2019-08-22 15:30] LABS: HEMATOCRIT 38.6 % (37.0-47.0); HEMOGLOBIN 12.5 g/dL (12.5-16.0); MEAN CELL VOLUME 93 fl (78-100); MEAN CORPUSCULAR HEMOGLOBIN 30 pg (27-31); MEAN CORPUSCULAR HGB CONC 32 g/dL (33-37); MEAN PLATELET VOLUME 9.2 fl (7.4-10.4); PLATELET COUNT 232 K/mm3 (130-400); RED BLOOD COUNT 4.15 M/mm3 (4.10-5.30); RED CELL DISTRIBUTION WIDTH 12.7 % (11.5-14.5); WHITE BLOOD COUNT 9.4 K/mm3 (4.8-10.8)
[2019-08-22 15:32] LABS: POTASSIUM 3.6 mmol/L (3.5-5.1)
[2019-08-22 15:33] LABS: CALCIUM 8.8 mg/dL (8.3-10.5)
[2019-08-22 15:36] LABS: LYMPHOCYTE 9 % (20-51); MONOCYTE 5 % (3-10); NEUTROPHILS 81 % (42-75)
[2019-08-22 16:10] VITALS: BP 122/51
[2019-08-22] MEDS ORDERED: PREDNISONE20 M1 PO (16:17)
[2019-08-22] MEDS ORDERED: AUGMENTIN 875-1 EAC1 PO (16:17)
== END 2019-08-22 16:35 | disposition home or self-care (01) ==
LOC: ED 14:42
PROVIDERS: Physician Assistant
DX: J45.901 Unspecified asthma with (acute) exacerbation (principal); J32.9 Chronic sinusitis, unspecified; F41.9 Anxiety disorder, unspecified; F31.9 Bipolar disorder, unspecified; F60.3 Borderline personality disorder; Z87.891 Personal history of nicotine dependence; Z88.0 Allergy status to penicillin
CPT/HCPCS: J2930

== ENCOUNTER 2019-10-16 12:16 | Emergency (ER) | payer MEDICAID ==
[~2019-10-16] VITALS: Ht 165.1 cm; Wt 138.2 kg
[~2019-10-16 12:16] MED LIST changes: +ARIPIPRAZOLE15 MG PO; +AUGMENTIN 875-1 EAC1 PO; +ESCITALOPRAM20 MG PO; +MELOXICAM15 MG PO
[2019-10-16 14:37] LABS: URINE APPEARANCE CLEAR; URINE BILIRUBIN NEGATIVE (NEGATIVE); URINE BLOOD NEGATIVE (NEGATIVE); URINE COLOR YELLOW; URINE GLUCOSE NEGATIVE (NEGATIVE); URINE KETONE NEGATIVE (NEGATIVE); URINE LEUKOCYTE ESTERASE NEGATIVE (NEGATIVE); URINE NITRATE NEGATIVE (NEGATIVE); URINE PROTEIN(semi-quant) TRACE mg/dL (NEGATIVE); URINE UROBILINOGEN 1 mg/dL (NORMAL); URINE WBC 0-1 /hpf (0-3)
[2019-10-16 14:52] LABS: EOS % 9.3 % (1.0-5.0); HEMATOCRIT 41.5 % (37.0-47.0); HEMOGLOBIN 13.4 g/dL (12.5-16.0); LYMPH# 1.6 (1.50-4.00); MEAN CELL VOLUME 93 fl (78-100); MEAN CORPUSCULAR HEMOGLOBIN 30 pg (27-31); MEAN CORPUSCULAR HGB CONC 32 g/dL (33-37); MEAN PLATELET VOLUME 9.3 fl (7.4-10.4); MONO # 0.6 (0.20-0.80); NEU # 4.7 (1.40-6.50); PLATELET COUNT 275 K/mm3 (130-400); RED BLOOD COUNT 4.45 M/mm3 (4.10-5.30); RED CELL DISTRIBUTION WIDTH 13.5 % (11.5-14.5); WHITE BLOOD COUNT 7.7 K/mm3 (4.8-10.8)
[2019-10-16 14:57] LABS: EOS # 0.7 (0.04-0.40)
[2019-10-16 15:01] LABS: ALBUMIN 3.8 g/dL (3.5-5.0); POTASSIUM 3.7 mmol/L (3.5-5.1)
[2019-10-16 15:02] LABS: CALCIUM 8.7 mg/dL (8.3-10.5)
[2019-10-16 15:03] LABS: TOTAL PROTEIN 6.8 g/dL (6.4-8.3)
[2019-10-16 15:05] LABS: TOTAL BILIRUBIN 0.5 mg/dL (0.2-1.2)
[2019-10-16] MEDS ORDERED: HCTZ 25MG25 MG PO (16:14)
[2019-10-16] MEDS ORDERED: ONDANSETRON ODT8 MG PO (17:57)
[2019-10-16] MEDS ORDERED: PERCOCET 325 MG1 TA2 PO (17:57)
[2019-10-16] MEDS ORDERED: NIZORAL CREAM15 GM TP (18:08)
[2019-10-16 18:14] VITALS: BP 152/86
== END 2019-10-16 18:18 | disposition home or self-care (01) ==
LOC: ED 12:16
PROVIDERS: Nurse Practitioner Family
DX: B37.2 Candidiasis of skin and nail (principal); L30.4 Erythema intertrigo; N28.89 Other specified disorders of kidney and ureter; E03.9 Hypothyroidism, unspecified; F31.9 Bipolar disorder, unspecified; F41.9 Anxiety disorder, unspecified; J45.909 Unspecified asthma, uncomplicated; Z87.891 Personal history of nicotine dependence; Z88.0 Allergy status to penicillin
CPT/HCPCS: J1885; J7030; Q9967

== ENCOUNTER 2019-11-03 10:01 | Emergency (ER) | payer MEDICAID ==
[~2019-11-03] VITALS: Ht 165.1 cm; Wt 109.1 kg
[~2019-11-03 10:01] MED LIST changes: +NIZORAL CREAM15 GM TP; +ONDANSETRON ODT8 MG PO; +PERCOCET 325 MG1 TA2 PO
[2019-11-03 10:47] LABS: HEMATOCRIT 41.3 % (37.0-47.0); HEMOGLOBIN 13.3 g/dL (12.5-16.0); MEAN CELL VOLUME 93 fl (78-100); MEAN CORPUSCULAR HEMOGLOBIN 30 pg (27-31); MEAN CORPUSCULAR HGB CONC 32 g/dL (33-37); MEAN PLATELET VOLUME 9.1 fl (7.4-10.4); PLATELET COUNT 264 K/mm3 (130-400); RED BLOOD COUNT 4.44 M/mm3 (4.10-5.30); RED CELL DISTRIBUTION WIDTH 13.6 % (11.5-14.5); WHITE BLOOD COUNT 5.8 K/mm3 (4.8-10.8)
[2019-11-03 10:59] LABS: LYMPHOCYTE 31 % (20-51); MONOCYTE 8 % (3-10); NEUTROPHILS 53 % (42-75)
[2019-11-03] MEDS ORDERED: VIBRAMYCIN HYC100 MG PO (11:10)
[2019-11-03 11:25] VITALS: BP 128/79
== END 2019-11-03 11:25 | disposition home or self-care (01) ==
LOC: ED 10:01
PROVIDERS: Family Medicine
DX: L72.3 Sebaceous cyst (principal); I88.9 Nonspecific lymphadenitis, unspecified; J45.909 Unspecified asthma, uncomplicated; F41.9 Anxiety disorder, unspecified; F31.9 Bipolar disorder, unspecified; F60.3 Borderline personality disorder; Z87.891 Personal history of nicotine dependence

== ENCOUNTER 2020-01-18 12:18 | Inpatient (IN) | payer MEDICAID ==
[~2020-01-18] VITALS: Wt 140.2 kg
[2020-01-18 13:07] LABS: HEMATOCRIT 42.4 % (37.0-47.0); HEMOGLOBIN 13.7 g/dL (12.5-16.0); MEAN CELL VOLUME 94 fl (78-100); MEAN CORPUSCULAR HEMOGLOBIN 30 pg (27-31); MEAN CORPUSCULAR HGB CONC 32 g/dL (33-37); MEAN PLATELET VOLUME 8.7 fl (7.4-10.4); PLATELET COUNT 275 K/mm3 (130-400); RED BLOOD COUNT 4.52 M/mm3 (4.10-5.30); RED CELL DISTRIBUTION WIDTH 14.7 % (11.5-14.5); WHITE BLOOD COUNT 7.3 K/mm3 (4.8-10.8)
[2020-01-18 13:16] LABS: POTASSIUM 4.1 mmol/L (3.5-5.1)
[2020-01-18 13:18] LABS: TOTAL PROTEIN 7.5 g/dL (6.4-8.3)
[2020-01-18 13:20] LABS: TOTAL BILIRUBIN 0.4 mg/dL (0.2-1.2)
[2020-01-18 13:28] LABS: LYMPHOCYTE 12 % (20-51); MONOCYTE 10 % (3-10); NEUTROPHILS 69 % (42-75)
[2020-01-18] MEDS ORDERED: DICLOFENAC POT.50 MG PO (14:36)
[2020-01-18] MEDS ORDERED: VITAMIN D21250 MCG PO (14:40)
[2020-01-18 15:36] LABS: D-DIMER 0.71 mg/L FEU (0.15-0.50)
[2020-01-18 18:06] VITALS: BP 187/83
[2020-01-18 22:05] VITALS: BP 170/90
[2020-01-18 23:04] VITALS: BP 164/61
[2020-01-19 02:00] VITALS: BP 124/62
[2020-01-19 05:30] VITALS: BP 134/82
[2020-01-19 10:00] VITALS: BP 142/109
[2020-01-19 17:56] VITALS: BP 125/68
[2020-01-19 22:04] VITALS: BP 124/73
[2020-01-20 02:07] VITALS: BP 136/68
[2020-01-20 06:07] VITALS: BP 116/72
[2020-01-20 08:52] LABS: POTASSIUM 3.8 mmol/L (3.5-5.1)
[2020-01-20 08:54] LABS: CALCIUM 8.8 mg/dL (8.3-10.5); HEMATOCRIT 42.1 % (37.0-47.0); HEMOGLOBIN 13.4 g/dL (12.5-16.0); MEAN CELL VOLUME 95 fl (78-100); MEAN CORPUSCULAR HEMOGLOBIN 30 pg (27-31); MEAN CORPUSCULAR HGB CONC 32 g/dL (33-37); MEAN PLATELET VOLUME 9.2 fl (7.4-10.4); PLATELET COUNT 308 K/mm3 (130-400); RED BLOOD COUNT 4.44 M/mm3 (4.10-5.30); RED CELL DISTRIBUTION WIDTH 15.1 % (11.5-14.5); WHITE BLOOD COUNT 13.5 K/mm3 (4.8-10.8)
[2020-01-20 10:16] VITALS: BP 115/70
[2020-01-20 10:49] LABS: LYMPHOCYTE 10 % (20-51); MONOCYTE 4 % (3-10); NEUTROPHILS 86 % (42-75)
[2020-01-20 14:20] VITALS: BP 134/69
[2020-01-20 17:57] VITALS: BP 110/50
[2020-01-20 21:26] VITALS: BP 160/79
[2020-01-21 02:03] VITALS: BP 131/84
[2020-01-21 05:30] VITALS: BP 140/83
[2020-01-21 09:46] VITALS: BP 124/61
[2020-01-21 10:56] LABS: HEMATOCRIT 43.6 % (37.0-47.0); HEMOGLOBIN 13.7 g/dL (12.5-16.0); MEAN CELL VOLUME 95 fl (78-100); MEAN CORPUSCULAR HEMOGLOBIN 30 pg (27-31); MEAN CORPUSCULAR HGB CONC 31 g/dL (33-37); PLATELET COUNT 334 K/mm3 (130-400); RED CELL DISTRIBUTION WIDTH 14.9 % (11.5-14.5); WHITE BLOOD COUNT 12.6 K/mm3 (4.8-10.8)
[2020-01-21 11:16] LABS: ALBUMIN 3.9 g/dL (3.5-5.0); POTASSIUM 3.4 mmol/L (3.5-5.1)
[2020-01-21 11:17] LABS: CALCIUM 8.9 mg/dL (8.3-10.5)
[2020-01-21 11:18] LABS: TOTAL PROTEIN 7.1 g/dL (6.4-8.3)
[2020-01-21 11:20] LABS: TOTAL BILIRUBIN 0.3 mg/dL (0.2-1.2)
[2020-01-21 11:40] LABS: LYMPHOCYTE 18 % (20-51); MONOCYTE 10 % (3-10); NEUTROPHILS 73 % (42-75)
[2020-01-21 13:14] VITALS: BP 139/80
== END 2020-01-21 13:28 | disposition left against medical advice (07) | DRG 203 ==
LOC: ED 12:18 → MED/SURG 17:30
PROVIDERS: Nurse Practitioner; ADMIT Family Medicine
DX: J45.901 Unspecified asthma with (acute) exacerbation (principal); F31.9 Bipolar disorder, unspecified; F41.9 Anxiety disorder, unspecified; G43.909 Migraine, unspecified, not intractable, without status migrainosus
CPT/HCPCS: J1650; J1940; J2930; J7512; Q9967

== ENCOUNTER → 2020-05-26 | Outpatient (CLI) | payer MEDICAID ==
[~2020-05-26] MED LIST changes: +DICLOFENAC POT.50 MG PO; +VITAMIN D21250 MCG PO
== END ==
LOC: RAD 10:59
DX: M51.16 Intervertebral disc disorders with radiculopathy, lumbar region (principal); M47.26 Other spondylosis with radiculopathy, lumbar region

== ENCOUNTER → 2020-09-16 | Outpatient (CLI) | payer MEDICAID ==
[2020-09-17 16:49] LABS: FOLATE (FOLIC ACID) 9.9 ng/mL (7.0-31.4)
== END ==
LOC: LAB 16:35
PROVIDERS: Physician Assistant
DX: E03.9 Hypothyroidism, unspecified (principal); R20.2 Paresthesia of skin

== ENCOUNTER 2021-03-07 15:02 | Emergency (ER) | payer MEDICAID ==
[2021-03-07 16:09] LABS: BASO # 0.03 (0.02-0.10); EOS # 0.52 (0.04-0.40); EOS % 7.5 % (1.0-5.0); HEMATOCRIT 41.3 % (37.0-47.0); HEMOGLOBIN 13.9 g/dL (12.5-16.0); LYMPH# 1.21 (1.50-4.00); MEAN CELL VOLUME 94 fl (78-100); MEAN CORPUSCULAR HEMOGLOBIN 32 pg (27-31); MEAN CORPUSCULAR HGB CONC 34 g/dL (33-37); MEAN PLATELET VOLUME 9.4 fl (7.4-10.4); NEU # 4.49 (1.40-6.50); PLATELET COUNT 249 K/mm3 (130-400); RED BLOOD COUNT 4.41 M/mm3 (4.10-5.30); RED CELL DISTRIBUTION WIDTH 12.9 % (11.5-14.5)
[2021-03-07 16:19] LABS: POTASSIUM 4.2 mmol/L (3.5-5.1)
[2021-03-07 16:20] LABS: CALCIUM 8.9 mg/dL (8.3-10.5)
[2021-03-07] MEDS ORDERED: IPRATROPIUM BROM3 M1 IH (16:33)
[2021-03-07] MEDS ORDERED: HYDROXYZINE HYD50 M1 PO (16:33)
[2021-03-07] MEDS ORDERED: PREDNISONE20 M1 PO ×2 (16:55→16:58)
[2021-03-07 17:21] VITALS: BP 138/102
== END 2021-03-07 17:21 | disposition home or self-care (01) ==
LOC: ED 15:02
PROVIDERS: Family Medicine
DX: J44.9 Chronic obstructive pulmonary disease, unspecified (principal); F31.9 Bipolar disorder, unspecified; E66.01 Morbid (severe) obesity due to excess calories; G43.909 Migraine, unspecified, not intractable, without status migrainosus; Z20.822 Contact with and (suspected) exposure to COVID-19; Z68.43 Body mass index [BMI] 50.0-59.9, adult; Z87.891 Personal history of nicotine dependence; Z79.51 Long term (current) use of inhaled steroids; Z79.899 Other long term (current) drug therapy
CPT/HCPCS: J2930

== ENCOUNTER 2021-05-31 09:48 | Emergency (ER) | payer MEDICAID ==
[~2021-05-31 09:48] MED LIST changes: +HYDROXYZINE HYD50 M1 PO
[2021-05-31] MEDS ORDERED: SOLIFENACIN SUC10 MG PO (10:30)
[2021-05-31] MEDS ORDERED: SAXENDA3 MG/0.5 M SQ (10:30)
[2021-05-31] MEDS ORDERED: GEMTESA75 MG PO (10:30)
[2021-05-31 11:02] LABS: BASO # 0.03 (0.02-0.10); EOS # 0.54 (0.04-0.40); HEMATOCRIT 42.6 % (37.0-47.0); HEMOGLOBIN 13.6 g/dL (12.5-16.0); LYMPH# 1.71 (1.50-4.00); MEAN CELL VOLUME 97 fl (78-100); MEAN CORPUSCULAR HEMOGLOBIN 31 pg (27-31); MEAN CORPUSCULAR HGB CONC 32 g/dL (33-37); MEAN PLATELET VOLUME 10.1 fl (7.4-10.4); MONO # 0.58 (0.20-0.80); PLATELET COUNT 201 K/mm3 (130-400); RED CELL DISTRIBUTION WIDTH 13.2 % (11.5-14.5)
[2021-05-31 11:12] LABS: ALBUMIN 3.7 g/dL (3.5-5.0)
[2021-05-31 11:13] LABS: POTASSIUM 3.7 mmol/L (3.5-5.1)
[2021-05-31 11:14] LABS: CALCIUM 9.5 mg/dL (8.3-10.5)
[2021-05-31 11:15] LABS: TOTAL PROTEIN 7.3 g/dL (6.4-8.3)
[2021-05-31 11:17] LABS: TOTAL BILIRUBIN 0.3 mg/dL (0.2-1.2)
[2021-05-31] MEDS ORDERED: NYSTATIN UD5 ML/CUP PO (11:31)
[2021-05-31] MEDS ORDERED: MORGIDOX 1X100100 MG PO (11:31)
[2021-05-31] MEDS ORDERED: PREDNISONE20 MG PO (11:31)
[2021-05-31 11:37] VITALS: BP 139/90
== END 2021-05-31 11:38 | disposition home or self-care (01) ==
LOC: ED 09:48
PROVIDERS: Nurse Practitioner
DX: J40 Bronchitis, not specified as acute or chronic (principal); B37.0 Candidal stomatitis; Z20.822 Contact with and (suspected) exposure to COVID-19
CPT/HCPCS: J7512

== ENCOUNTER 2021-12-27 13:20 | Observation (INO) | payer MEDICAID ==
[~2021-12-27] VITALS: Ht 165.1 cm; Wt 140.5 kg
[~2021-12-27 13:20] MED LIST changes: +GEMTESA75 MG PO; +MORGIDOX 1X100100 MG PO; +NYSTATIN UD5 ML/CUP PO; +PREDNISONE20 MG PO; +SOLIFENACIN SUC10 MG PO
[2021-12-27 14:40] LABS: BASO # 0.04 K/mm3 (0.02-0.10); EOS # 0.63 K/mm3 (0.04-0.40); EOS % 6.4 % (1.0-5.0); HEMATOCRIT 42.3 % (37.0-47.0); HEMOGLOBIN 14.1 g/dL (12.5-16.0); LYMPH# 0.89 K/mm3 (1.50-4.00); MEAN CELL VOLUME 92 fl (78-100); MEAN CORPUSCULAR HEMOGLOBIN 31 pg (27-31); MEAN CORPUSCULAR HGB CONC 33 g/dL (33-37); MONO # 0.76 K/mm3 (0.20-0.80); NEU # 7.47 K/mm3 (1.40-6.50); PLATELET COUNT 309 K/mm3 (130-400); RED BLOOD COUNT 4.59 M/mm3 (4.10-5.30); RED CELL DISTRIBUTION WIDTH 13.3 % (11.5-14.5); WHITE BLOOD COUNT 9.8 K/mm3 (4.8-10.8)
[2021-12-27 14:55] LABS: POTASSIUM 3.9 mmol/L (3.5-5.1)
[2021-12-27 14:56] LABS: CALCIUM 9.2 mg/dL (8.3-10.5)
[2021-12-27 14:57] LABS: TOTAL PROTEIN 7.1 g/dL (6.4-8.3)
[2021-12-27 14:59] LABS: TOTAL BILIRUBIN 1.5 mg/dL (0.2-1.2)
[2021-12-27 15:08] LABS: URINE APPEARANCE HAZY; URINE BLOOD TRACE (NEGATIVE); URINE COLOR ORANGE; URINE GLUCOSE NEGATIVE (NEGATIVE); URINE KETONE NEGATIVE (NEGATIVE); URINE NITRATE NEGATIVE (NEGATIVE); URINE PROTEIN(semi-quant) 1+ (NEGATIVE)
[2021-12-27 15:09] LABS: URINE BILIRUBIN 2+ (NEGATIVE); URINE LEUKOCYTE ESTERASE TRACE (NEGATIVE); URINE MUCUS PRESENT (NOT PRESENT); URINE UROBILINOGEN 12 mg/dL (NORMAL)
[2021-12-27] MEDS ORDERED: WELLBUTRIN XL300 M1 PO (18:29)
[2021-12-27] MEDS ORDERED: HYDROXYZINE HCL25 M1 PO (18:29)
[2021-12-27] MEDS ORDERED: WELLBUTRIN XL150 M2 PO (18:29)
[2021-12-27] MEDS ORDERED: LEVOTHYROXINE0.05 MG PO (18:32)
[2021-12-27] MEDS ORDERED: DICLOFENAC POT.50 MG PO (18:32)
[2021-12-27 19:35] VITALS: BP 148/80
[2021-12-27] MEDS ORDERED: VITAMIN D3125 MCG PO (20:48)
[2021-12-27] MEDS ORDERED: WOMEN'S DAILY F1 TAB PO (20:48)
[2021-12-27] MEDS ORDERED: BIOTIN2500 MCG PO (20:52)
[2021-12-27] MEDS ORDERED: VITAMIN B122500 MC1 PO (20:54)
[2021-12-27] MEDS ORDERED: CLARITIN10 M1 PO (20:57)
[2021-12-27 21:28] VITALS: BP 124/69
[2021-12-28 01:51] VITALS: BP 113/71
[2021-12-28 05:52] VITALS: BP 119/73
[2021-12-28 09:37] VITALS: BP 110/67
[2021-12-28 13:22] LABS: ALBUMIN 3.3 g/dL (3.5-5.0); POTASSIUM 4.2 mmol/L (3.5-5.1)
[2021-12-28 13:23] LABS: CALCIUM 8.4 mg/dL (8.3-10.5)
[2021-12-28 13:26] LABS: TOTAL BILIRUBIN 2.3 mg/dL (0.2-1.2)
[2021-12-28 13:36] VITALS: BP 117/55
[2021-12-28 18:09] VITALS: BP 111/63
[2021-12-28 21:57] VITALS: BP 121/78
[2021-12-29 06:16] VITALS: BP 143/85
[2021-12-29 07:41] LABS: ALBUMIN 3.4 g/dL (3.5-5.0); POTASSIUM 3.7 mmol/L (3.5-5.1)
[2021-12-29 07:43] LABS: CALCIUM 8.7 mg/dL (8.3-10.5)
[2021-12-29 07:44] LABS: TOTAL PROTEIN 6.2 g/dL (6.4-8.3)
[2021-12-29 07:46] LABS: TOTAL BILIRUBIN 0.9 mg/dL (0.2-1.2)
[2021-12-29] MEDS ORDERED: ZOFRAN ODT4 MG PO (09:27)
[2021-12-29 09:41] VITALS: BP 126/71
== END 2021-12-29 10:43 | disposition home or self-care (01) ==
LOC: ED 13:20 → MED/SURG 19:35
PROVIDERS: Nurse Practitioner; ADMIT Family Medicine
DX: K85.90 Acute pancreatitis without necrosis or infection, unspecified (principal); K80.20 Calculus of gallbladder without cholecystitis without obstruction; K21.9 Gastro-esophageal reflux disease without esophagitis; E66.01 Morbid (severe) obesity due to excess calories; J45.909 Unspecified asthma, uncomplicated; Z68.43 Body mass index [BMI] 50.0-59.9, adult; Z87.891 Personal history of nicotine dependence; Z79.899 Other long term (current) drug therapy
CPT/HCPCS: C9113; G0378; J1650; J1885

== ENCOUNTER 2022-12-20 10:04 | Outpatient (RCR) | payer MEDICAID ==
[~2022-12-20 10:04] MED LIST changes: +BIOTIN2500 MCG PO; +CLARITIN10 M1 PO; +HYDROXYZINE HCL25 M1 PO; +LEVOTHYROXINE0.05 MG PO; +VITAMIN B122500 MC1 PO; +VITAMIN D3125 MCG PO; +WELLBUTRIN XL150 M2 PO; +WELLBUTRIN XL300 M1 PO; +WOMEN'S DAILY F1 TAB PO
== END 2023-01-07 | disposition home or self-care (01) ==
LOC: PT
DX: M25.561 Pain in right knee (principal); M54.50 Low back pain, unspecified